=== PATIENT | male | born 1990 | race Caucasian/White ===

== ENCOUNTER 2018-08-15 18:42 | Inpatient (IN) | payer MEDICAID ==
[~2018-08-15] VITALS: Ht 177.8 cm; Wt 85.5 kg
[2018-08-15] MEDS ORDERED: NALOXONE 0.4 MG/ML, 1ML ONE ×2 (18:58→19:58)
[2018-08-15] MEDS ORDERED: NALOXONE 0.4 MG/ML, 1ML IVPush ONE ×2 (19:00→20:00)
[2018-08-15 19:15] LABS: MEAN CORPUSCULAR HEMOGLOBIN 29.7 pg (27.5-34.5); MEAN CORPUSCULAR HGB CONC 33.9 g/dL (33.2-36.2); MEAN CORPUSCULAR VOLUME 87.5 fL (81-97); MEAN PLATELET VOLUME 7.4 fL (7.4-10.4); PLATELET COUNT 392 x10^3/uL (130-400); RED BLOOD COUNT 6.41 x10^6/uL (4.38-5.82); RED CELL DISTRIBUTION WIDTH 13.6 % (9.4-14.8)
[2018-08-15 19:27] LABS: ANION GAP 11 mmol/L (5-15); CALCIUM 7.9 mg/dL (8.5-10.1); CHLORIDE 101 mmol/L (98-107); CREATININE 3.24 mg/dL (0.7-1.3)
[2018-08-15 19:39] LABS: BAND#(MANUAL) 0.33 x10^3/uL; BANDS%(MANUAL) 2 % (0-7); BASOS#(MANUAL) 0.17 x10^3/uL (0-0.1); BASOS% (MANUAL) 1 % (0-1); LYMPH#(MANUAL) 1.32 x10^3/uL (1-3.4); LYMPHS% (MANUAL) 8 % (22-44); MD YES; METAMYELOCYTES# (MANUAL) 0.17 x10^3/uL (0-0); METAMYELOCYTES% (MANUAL) 1 % (0-1); MONOS#(MANUAL) 1.32 x10^3/uL (0.3-2.7); MONOS% (MANUAL) 8 % (2-9); SEGS% (MANUAL) 80 % (42-75)
[2018-08-15 19:40] LABS: <PLATELET ESTIMATE> ADEQUATE; <PLT MORPHOLOGY> NORMAL PLT MORPH; <RBC MORPHOLOGY> NORMAL
[2018-08-15] MEDS ORDERED: NALOXONE 4 MG in SODIUM CHLORIDE 0.9% 1,000 ML IV SCH (20:00)
[2018-08-15] MEDS ORDERED: SODIUM CHLORIDE 0.9% 1,000ML IVBOLUS ONE (20:00)
[2018-08-15] MEDS: SODIUM CHLORIDE 0.9% IV SCH (20:45)
[2018-08-15] MEDS: NALOXONE IV SCH (20:45)
[2018-08-15] MEDS ORDERED: ONDANSETRON 2MG/ML, 2ML IVPush PRN (21:30)
[2018-08-15] MEDS ORDERED: NALOXONE 0.4 MG in SODIUM CHLORIDE 0.9% 1,000 ML IV SCH (21:30)
[2018-08-15] MEDS ORDERED: ONDANSETRON ODT 4 MG PO PRN (21:30)
[2018-08-15] MEDS: SODIUM BICARBONATE 8.4% 150 MEQ in DEXTROSE 5% 1,000 ML IV SCH (21:52)
[2018-08-16 00:17] VITALS: BP 138/93
[2018-08-16 01:41] LABS: MICROSCOPIC INDICATED
[2018-08-16 01:45] VITALS: BP 144/95
[2018-08-16 01:52] LABS: AMPHETAMINE SCREEN, URINE Positive (Negative); BARBITURATE SCREEN, URINE Negative (Negative); BENZODIAZEPINE SCREEN, URINE Positive (Negative); CANNABINOID SCREEN, URINE Negative (Negative); COCAINE SCREEN, URINE Positive (Negative); METHADONE SCREEN, URINE Negative (Negative); OPIATE SCREEN, URINE Positive (Negative)
[2018-08-16 02:02] LABS: CULTURE INDICATED? YES
[2018-08-16 04:00] VITALS: BP 150/85
[2018-08-16 04:46] LABS: CALCIUM 6.9 mg/dL (8.5-10.1); CHLORIDE 102 mmol/L (98-107)
[2018-08-16] MEDS: SODIUM BICARBONATE 8.4% 150 MEQ in DEXTROSE 5% 1,000 ML IV SCH ×3 (05:13→21:23)
[2018-08-16 05:15] LABS: BASOPHILS # (AUTO) 0.09 x10^3/uL (0-0.1); BASOPHILS % (AUTO) 1 % (0-1); EOSINOPHILS # (AUTO) 0.04 x10^3/uL (0-0.4); EOSINOPHILS % (AUTO) 0 % (1-7); LYMPHOCYTES # (AUTO) 2.45 x10^3/uL (1-3.4); LYMPHOCYTES % (AUTO) 22 % (22-44); MD NO; MEAN CORPUSCULAR HEMOGLOBIN 29.8 pg (27.5-34.5); MEAN CORPUSCULAR HGB CONC 33.9 g/dL (33.2-36.2); MEAN CORPUSCULAR VOLUME 87.8 fL (81-97); MEAN PLATELET VOLUME 7.5 fL (7.4-10.4); MONOCYTES # (AUTO) 1.11 x10^3/uL (0.2-0.8); MONOCYTES % (AUTO) 10 % (2-9); NEUTROPHILS # (AUTO) 7.53 x10^3/uL (1.8-6.8); NEUTROPHILS % (AUTO) 67 % (42-75); PLATELET COUNT 389 x10^3/uL (130-400); RED BLOOD COUNT 5.72 x10^6/uL (4.38-5.82); RED CELL DISTRIBUTION WIDTH 13.7 % (9.4-14.8)
[2018-08-16 05:16] LABS: ALANINE AMINOTRANSFERASE 473 U/L (12-78); ALKALINE PHOSPHATASE 58 U/L (45-117); ANION GAP 8 mmol/L (5-15); BILIRUBIN,TOTAL 0.8 mg/dL (0.2-1.0); CREATININE 1.92 mg/dL (0.7-1.3); TOTAL PROTEIN 6.6 g/dL (6.4-8.2)
[2018-08-16 06:21] LABS: CREATINE KINASE, TOTAL 35472 U/L (39-308)
[2018-08-16] MEDS: NALOXONE IV SCH ×2 (07:07→16:42)
[2018-08-16] MEDS: SODIUM CHLORIDE 0.9% IV SCH ×2 (07:07→16:42)
[2018-08-16] MEDS ORDERED: NICOTINE 21 MG/24 HR PATCH.TD24 TD ONE (18:30)
[2018-08-16] MEDS: MELATONIN 5 MG TABLET PO PRN (20:37)
[2018-08-17 04:00] VITALS: BP 135/70
[2018-08-17] MEDS: SODIUM BICARBONATE 8.4% 150 MEQ in DEXTROSE 5% 1,000 ML IV SCH (04:33)
[2018-08-17 04:39] LABS: BASOPHILS # (AUTO) 0.04 x10^3/uL (0-0.1); BASOPHILS % (AUTO) 0 % (0-1); EOSINOPHILS # (AUTO) 0.13 x10^3/uL (0-0.4); EOSINOPHILS % (AUTO) 1 % (1-7); LYMPHOCYTES # (AUTO) 2.52 x10^3/uL (1-3.4); LYMPHOCYTES % (AUTO) 27 % (22-44); MD NO; MEAN CORPUSCULAR HEMOGLOBIN 29.9 pg (27.5-34.5); MEAN CORPUSCULAR HGB CONC 34.4 g/dL (33.2-36.2); MEAN CORPUSCULAR VOLUME 86.8 fL (81-97); MEAN PLATELET VOLUME 7.3 fL (7.4-10.4); MONOCYTES # (AUTO) 1.15 x10^3/uL (0.2-0.8); MONOCYTES % (AUTO) 12 % (2-9); NEUTROPHILS # (AUTO) 5.42 x10^3/uL (1.8-6.8); NEUTROPHILS % (AUTO) 59 % (42-75); PLATELET COUNT 262 x10^3/uL (130-400); RED BLOOD COUNT 5.04 x10^6/uL (4.38-5.82); RED CELL DISTRIBUTION WIDTH 13.5 % (9.4-14.8)
[2018-08-17 04:43] LABS: ALANINE AMINOTRANSFERASE 284 U/L (12-78); ALBUMIN 2.3 g/dL (3.4-5.0); ANION GAP 7 mmol/L (5-15); CALCIUM 7.2 mg/dL (8.5-10.1); CHLORIDE 98 mmol/L (98-107); CREATININE 1.19 mg/dL (0.7-1.3)
[2018-08-17 04:47] LABS: ALKALINE PHOSPHATASE 43 U/L (45-117); BILIRUBIN,TOTAL 0.5 mg/dL (0.2-1.0); TOTAL PROTEIN 5.7 g/dL (6.4-8.2)
[2018-08-17] MEDS ORDERED: ACETAMINOPHEN 500 MG TABLET ONE (04:47)
[2018-08-17] MEDS: ACETAMINOPHEN 500 MG TABLET PO PRN ×2 (04:49→20:48)
[2018-08-17] MEDS: SODIUM CHLORIDE 0.9% 1,000 ML IV SCH ×2 (08:42→20:44)
[2018-08-17] MEDS ORDERED: OMNIPAQUE 350 MG/ML, 100ML BOTTLE ONE (12:27)
[2018-08-17 18:33] VITALS: BP 122/73
[2018-08-17] MEDS: NICOTINE 21 MG/24 HR PATCH.TD24 TD SCH (20:49)
[2018-08-17] MEDS: MELATONIN 5 MG TABLET PO PRN (22:03)
[2018-08-18 02:27] VITALS: BP 162/89
[2018-08-18 05:05] LABS: ANION GAP 7 mmol/L (5-15); CALCIUM 8.2 mg/dL (8.5-10.1); CHLORIDE 105 mmol/L (98-107)
[2018-08-18 05:30] LABS: CREATINE KINASE, TOTAL 8168 U/L (39-308)
[2018-08-18 07:58] VITALS: BP 163/100
[2018-08-18] MEDS ORDERED: TRAZODONE 50MG TABLET PO PRN (10:30)
[2018-08-18 13:45] VITALS: BP 135/75
[2018-08-18] MEDS: NICOTINE 21 MG/24 HR PATCH.TD24 TD SCH (19:39)
[2018-08-18 20:08] VITALS: BP 171/83
[2018-08-18 20:50] VITALS: BP 157/77
[2018-08-19 02:08] VITALS: BP 151/85
[2018-08-19 07:58] VITALS: BP 128/62
[2018-08-19 08:08] VITALS: BP 155/81
[2018-08-19 14:20] VITALS: BP 153/83
[2018-08-19 18:16] VITALS: BP 166/82
[2018-08-19] MEDS: NICOTINE 21 MG/24 HR PATCH.TD24 TD SCH (20:17)
[2018-08-19] MEDS: DIPHENHYDRAMINE 25 MG CAPSULE PO PRN (21:25)
[2018-08-19] MEDS ORDERED: DIPHENHYDRAMINE 25 MG CAPSULE PO ONE (23:30)
[2018-08-20 00:03] VITALS: BP 140/74
[2018-08-20 06:16] LABS: CHLORIDE 103 mmol/L (98-107)
[2018-08-20 06:36] LABS: ALANINE AMINOTRANSFERASE 242 U/L (12-78); ALBUMIN 2.8 g/dL (3.4-5.0); ALKALINE PHOSPHATASE 53 U/L (45-117); ANION GAP 7 mmol/L (5-15); BILIRUBIN,TOTAL 0.2 mg/dL (0.2-1.0); CALCIUM 8.7 mg/dL (8.5-10.1); CREATINE KINASE, TOTAL 1733 U/L (39-308); CREATININE 0.99 mg/dL (0.7-1.3); TOTAL PROTEIN 6.5 g/dL (6.4-8.2)
[2018-08-20 07:11] VITALS: BP 150/87
[2018-08-20 12:57] VITALS: BP 162/90
[2018-08-20] MEDS: NICOTINE 21 MG/24 HR PATCH.TD24 TD SCH (15:52)
[2018-08-20 18:20] VITALS: BP 143/88
[2018-08-20] MEDS: DIPHENHYDRAMINE 25 MG CAPSULE PO PRN (21:53)
[2018-08-21 02:46] VITALS: BP 118/67
[2018-08-21 06:49] VITALS: BP 138/80
[2018-08-21] MEDS: NICOTINE 21 MG/24 HR PATCH.TD24 TD SCH (09:40)
[2018-08-21 12:39] LABS: CHLORIDE 99 mmol/L (98-107)
[2018-08-21 12:45] LABS: ALANINE AMINOTRANSFERASE 275 U/L (12-78); ALBUMIN 3.6 g/dL (3.4-5.0); ALKALINE PHOSPHATASE 63 U/L (45-117); ANION GAP 6 mmol/L (5-15); BILIRUBIN,TOTAL 0.3 mg/dL (0.2-1.0); CALCIUM 9.2 mg/dL (8.5-10.1); CREATINE KINASE, TOTAL 843 U/L (39-308); CREATININE 1.22 mg/dL (0.7-1.3); TOTAL PROTEIN 8.2 g/dL (6.4-8.2)
[2018-08-21] MEDS ORDERED: SODIUM CHLORIDE 0.9% 1,000 ML IV ONE (14:00)
[2018-08-21 18:30] VITALS: BP 154/75
[2018-08-21] MEDS: DIPHENHYDRAMINE 25 MG CAPSULE PO PRN (21:18)
[2018-08-21] MEDS: PRAZOSIN 1 MG CAPSULE PO SCH (21:18)
[2018-08-22 03:14] VITALS: BP 93/53
[2018-08-22 05:51] LABS: CHLORIDE 100 mmol/L (98-107)
[2018-08-22 05:55] LABS: ANION GAP 5 mmol/L (5-15); CALCIUM 8.6 mg/dL (8.5-10.1)
[2018-08-22 05:56] LABS: ALANINE AMINOTRANSFERASE 209 U/L (12-78); ALBUMIN 3.3 g/dL (3.4-5.0); ALKALINE PHOSPHATASE 50 U/L (45-117); BILIRUBIN,TOTAL 0.3 mg/dL (0.2-1.0); CREATINE KINASE, TOTAL 550 U/L (39-308); CREATININE 1.28 mg/dL (0.7-1.3); TOTAL PROTEIN 7.1 g/dL (6.4-8.2)
[2018-08-22 07:06] VITALS: BP 125/60
[2018-08-22 13:30] VITALS: BP 131/72
[2018-08-22 19:20] VITALS: BP 146/74
[2018-08-22] MEDS: PRAZOSIN 1 MG CAPSULE PO SCH (20:51)
[2018-08-22] MEDS: NICOTINE 21 MG/24 HR PATCH.TD24 TD SCH (20:52)
[2018-08-22] MEDS: DIPHENHYDRAMINE 25 MG CAPSULE PO PRN (20:52)
[2018-08-23 01:28] VITALS: BP 121/70
[2018-08-23 05:13] LABS: CALCIUM 8.2 mg/dL (8.5-10.1); CHLORIDE 104 mmol/L (98-107)
[2018-08-23 05:19] LABS: ALANINE AMINOTRANSFERASE 145 U/L (12-78); ALKALINE PHOSPHATASE 51 U/L (45-117); ANION GAP 8 mmol/L (5-15); BILIRUBIN,TOTAL 0.2 mg/dL (0.2-1.0); CREATINE KINASE, TOTAL 366 U/L (39-308); CREATININE 1.26 mg/dL (0.7-1.3); TOTAL PROTEIN 6.3 g/dL (6.4-8.2)
[2018-08-23 06:40] VITALS: BP 110/69
[2018-08-23] MEDS ORDERED: NICO-487 TD (12:55)
[2018-08-23] MEDS ORDERED: PRAZ1CAP2 PO (12:55)
[2018-08-23 13:10] VITALS: BP 150/87
== END 2018-08-23 15:15 | disposition home or self-care (01) | DRG 917 ==
LOC: SUATTDRO 21:16 → ED 21:28 → EDIP 21:32 → CCU 23:27 → 3NE 08-17 17:59 → DCLOUNGE 08-23 15:07
PROVIDERS: ADMIT Hospitalist; ATTEND Hospitalist
PROC: 0T9B70Z Drainage of Bladder with Drainage Device, Via Natural or Artificial Opening (ICD-10-PCS; principal; 2018-08-16)
DX: T43.622A Poisoning by amphetamines, intentional self-harm, initial encounter (principal); G92 Toxic encephalopathy; N17.0 Acute kidney failure with tubular necrosis; B17.9 Acute viral hepatitis, unspecified; E87.1 Hypo-osmolality and hyponatremia; F11.20 Opioid dependence, uncomplicated; F15.20 Other stimulant dependence, uncomplicated; M62.82 Rhabdomyolysis; T40.1X2A Poisoning by heroin, intentional self-harm, initial encounter; D72.829 Elevated white blood cell count, unspecified; E86.9 Volume depletion, unspecified; F14.10 Cocaine abuse, uncomplicated; I10 Essential (primary) hypertension; Z81.8 Family history of other mental and behavioral disorders; Z91.5 Personal history of self-harm; Y92.89 Other specified places as the place of occurrence of the external cause; Z91.018 Allergy to other foods
CPT/HCPCS: 36415; 71045; 80048; 80053; 80074; 80307; 81001; 82550; 83735; 84100; 85025; 87081; 87086; 87806; 93005; 96374; 96376; G0378; J2310; J7070; Q9967; G0475; J7030; Q0163

== ENCOUNTER 2018-11-01 05:41 | Inpatient (IN) | payer MEDICAID ==
[~2018-11-01] VITALS: Ht 177.8 cm; Wt 97.0 kg
[~2018-11-01 05:41] MED LIST: NICO-487 TD; PRAZ1CAP2 PO
[2018-11-01 06:27] LABS: BASOPHILS # (AUTO) 0.03 x10^3/uL (0-0.1); BASOPHILS % (AUTO) 0 % (0-1); EOSINOPHILS % (AUTO) 1 % (1-7); LYMPHOCYTES # (AUTO) 1.29 x10^3/uL (1-3.4); LYMPHOCYTES % (AUTO) 12 % (22-44); MD NO; MEAN CORPUSCULAR HEMOGLOBIN 30.8 pg (27.5-34.5); MEAN CORPUSCULAR HGB CONC 34.5 g/dL (33.2-36.2); MEAN CORPUSCULAR VOLUME 89.1 fL (81-97); MEAN PLATELET VOLUME 6.9 fL (7.4-10.4); MONOCYTES # (AUTO) 0.78 x10^3/uL (0.2-0.8); MONOCYTES % (AUTO) 8 % (2-9); NEUTROPHILS # (AUTO) 8.25 x10^3/uL (1.8-6.8); NEUTROPHILS % (AUTO) 79 % (42-75); PLATELET COUNT 340 x10^3/uL (130-400); RED BLOOD COUNT 4.56 x10^6/uL (4.38-5.82); RED CELL DISTRIBUTION WIDTH 13.9 % (9.4-14.8)
[2018-11-01 06:38] LABS: ALANINE AMINOTRANSFERASE 38 U/L (12-78); ANION GAP 10 mmol/L (5-15); CALCIUM 7.9 mg/dL (8.5-10.1); CHLORIDE 101 mmol/L (98-107); CREATININE 1.41 mg/dL (0.7-1.3)
[2018-11-01 06:40] LABS: ALKALINE PHOSPHATASE 53 U/L (45-117); BILIRUBIN,TOTAL 0.6 mg/dL (0.2-1.0); CREATINE KINASE, TOTAL 252 U/L (39-308); TOTAL PROTEIN 6.8 g/dL (6.4-8.2)
[2018-11-01] MEDS ORDERED: VANCOMYCIN 1,700 MG in SODIUM CHLORIDE 0.9% 250 ML IV ONE (08:00)
[2018-11-01] MEDS ORDERED: SODIUM CHLORIDE FLUSH 10ML SYR IVF ONE (08:00)
[2018-11-01] MEDS ORDERED: VANCOMYCIN PER PHARMACY MC PRN ×2 (08:00→12:00)
[2018-11-01] MEDS ORDERED: BUPR1FIL3 SL (08:28)
[2018-11-01] MEDS ORDERED: FENTANYL PF 250 MCG/5ML ONE (09:14)
[2018-11-01] MEDS ORDERED: MIDAZOLAM 1 MG/ML, 2ML ONE (09:14)
[2018-11-01] MEDS ORDERED: BUPIVACAINE/PF 0.25% ONE (09:40)
[2018-11-01] MEDS ORDERED: EPINEPHRINE 1 MG/ML, 1ML ONE (09:40)
[2018-11-01] MEDS ORDERED: SUCCINYLCHOLINE 20 MG/ML, 10ML ONE (09:48)
[2018-11-01] MEDS ORDERED: DEXAMETHASONE 4 MG/ML, 1ML ONE (09:48)
[2018-11-01] MEDS ORDERED: PROPOFOL 10 MG/ML, 20ML ONE (09:48)
[2018-11-01] MEDS ORDERED: ONDANSETRON 2MG/ML, 2ML ONE (09:48)
[2018-11-01] MEDS ORDERED: ROCURONIUM 10 MG/ML,10ML ONE (09:48)
[2018-11-01] MEDS ORDERED: morphine SULFATE 10 MG/ML, 1ML IVPush PRN (10:00)
[2018-11-01] MEDS ORDERED: ACETAMINOPHEN 325 MG TABLET PO PRN (10:00)
[2018-11-01] MEDS ORDERED: HYDROcodone/APAP 5/325 TABLET PO PRN (10:00)
[2018-11-01] MEDS ORDERED: OXYcodone 5 MG/5 ML ORAL.SOL UDC PO PRN (10:30)
[2018-11-01] MEDS ORDERED: LABETALOL 5MG/ML, 20ML IV PRN (10:30)
[2018-11-01] MEDS ORDERED: FENTANYL PF 100 MCG/2ML IV PRN (10:30)
[2018-11-01] MEDS ORDERED: hydrALAzine 20 MG/ML, 1ML IV PRN (10:30)
[2018-11-01] MEDS ORDERED: ONDANSETRON 2MG/ML, 2ML IV PRN (10:30)
[2018-11-01] MEDS ORDERED: HYDROmorphone 1 MG/ML, 1ML IV PRN (10:30)
[2018-11-01] MEDS ORDERED: ONDANSETRON ODT 8 MG PO PRN (10:30)
[2018-11-01] MEDS ORDERED: PROMETHAZINE 12.5 MG SUPP PR PRN (10:30)
[2018-11-01] MEDS ORDERED: ACETAMINOPHEN 650 MG/20.3 ML UDC ONE (10:59)
[2018-11-01] MEDS ORDERED: PHARMACOKINETIC MONITORING MC PRN (12:00)
[2018-11-01] MEDS ORDERED: ONDANSETRON 2MG/ML, 2ML IVPush PRN (12:00)
[2018-11-01] MEDS ORDERED: PHARMACOKINETIC CONSULTATION MC ONE (12:00)
[2018-11-01] MEDS: NS + 20MEQ KCL 1,000 ML IV SCH (12:43)
[2018-11-01] MEDS: AMPICILLIN/SULBACTAM 3 GM in SODIUM CHLORIDE 0.9% 100 ML IV SCH ×2 (12:43→17:55)
[2018-11-01 14:30] VITALS: BP 97/41
[2018-11-01 18:25] VITALS: BP 100/52
[2018-11-01] MEDS ORDERED: DOCUSATE 100 MG CAPSULE PO PRN (21:00)
[2018-11-01] MEDS ORDERED: DIPHENHYDRAMINE 50 MG CAPSULE PO PRN (21:30)
[2018-11-01] MEDS: VANCOMYCIN 1,700 MG in SODIUM CHLORIDE 0.9% 250 ML IV SCH (22:16)
[2018-11-02] MEDS: AMPICILLIN/SULBACTAM 3 GM in SODIUM CHLORIDE 0.9% 100 ML IV SCH ×4 (00:09→17:28)
[2018-11-02 00:35] VITALS: BP 102/71
[2018-11-02] MEDS: NS + 20MEQ KCL 1,000 ML IV SCH (01:51)
[2018-11-02 05:31] LABS: MEAN CORPUSCULAR HEMOGLOBIN 29.7 pg (27.5-34.5); MEAN CORPUSCULAR HGB CONC 32.8 g/dL (33.2-36.2); MEAN CORPUSCULAR VOLUME 90.6 fL (81-97); MEAN PLATELET VOLUME 7.6 fL (7.4-10.4); PLATELET COUNT 340 x10^3/uL (130-400); RED BLOOD COUNT 4.37 x10^6/uL (4.38-5.82); RED CELL DISTRIBUTION WIDTH 13.9 % (9.4-14.8)
[2018-11-02 05:48] LABS: ANION GAP 7 mmol/L (5-15); CALCIUM 7.1 mg/dL (8.5-10.1); CHLORIDE 105 mmol/L (98-107); CREATININE 1.01 mg/dL (0.7-1.3)
[2018-11-02 06:20] LABS: BASOPHILS # (AUTO) 0.04 x10^3/uL (0-0.1); BASOPHILS % (AUTO) 0 % (0-1); EOSINOPHILS # (AUTO) 0.01 x10^3/uL (0-0.4); EOSINOPHILS % (AUTO) 0 % (1-7); LYMPHOCYTES # (AUTO) 1.16 x10^3/uL (1-3.4); LYMPHOCYTES % (AUTO) 11 % (22-44); MD SCAN; MONOCYTES # (AUTO) 0.36 x10^3/uL (0.2-0.8); MONOCYTES % (AUTO) 3 % (2-9); NEUTROPHILS # (AUTO) 9.14 x10^3/uL (1.8-6.8); NEUTROPHILS % (AUTO) 85 % (42-75)
[2018-11-02 07:18] VITALS: BP 109/50
[2018-11-02] MEDS: BUPRENORPHINE HCL/NALOXONE 8-2MG FILM SL SCH (08:21)
[2018-11-02] MEDS: VANCOMYCIN 1,700 MG in SODIUM CHLORIDE 0.9% 250 ML IV SCH ×2 (09:08→21:46)
[2018-11-02] MEDS: ENOXAPARIN 40 MG/0.4 ML SQ SCH (11:32)
[2018-11-02 12:00] VITALS: BP 137/65
[2018-11-02 19:48] VITALS: BP 128/61
[2018-11-03] MEDS: AMPICILLIN/SULBACTAM 3 GM in SODIUM CHLORIDE 0.9% 100 ML IV SCH ×5 (00:01→23:36)
[2018-11-03 00:55] VITALS: BP 134/69
[2018-11-03 07:24] VITALS: BP 136/82
[2018-11-03] MEDS: BUPRENORPHINE HCL/NALOXONE 8-2MG FILM SL SCH (09:19)
[2018-11-03] MEDS: VANCOMYCIN 1,700 MG in SODIUM CHLORIDE 0.9% 250 ML IV SCH (09:21)
[2018-11-03] MEDS ORDERED: SULF1TAB24 PO (09:40)
[2018-11-03] MEDS: ENOXAPARIN 40 MG/0.4 ML SQ SCH (12:11)
[2018-11-03 14:11] VITALS: BP 143/73
[2018-11-03 19:08] VITALS: BP 140/69
[2018-11-03] MEDS: VANCOMYCIN 1,800 MG in SODIUM CHLORIDE 0.9% 250 ML IV SCH (21:32)
[2018-11-04 02:13] VITALS: BP 131/60
[2018-11-04] MEDS: AMPICILLIN/SULBACTAM 3 GM in SODIUM CHLORIDE 0.9% 100 ML IV SCH ×2 (05:38→12:00)
[2018-11-04 06:43] VITALS: BP 132/59
[2018-11-04] MEDS: VANCOMYCIN 1,800 MG in SODIUM CHLORIDE 0.9% 250 ML IV SCH (08:31)
[2018-11-04] MEDS: BUPRENORPHINE HCL/NALOXONE 8-2MG FILM SL SCH (08:31)
[2018-11-04 12:41] VITALS: BP 166/77
[2018-11-04] MEDS ORDERED: AMOX1TAB12 PO (12:49)
[2018-11-04] MEDS ORDERED: AMOXICILLIN/CLAV 875-125MG TABLET PO SCH (21:00)
== END 2018-11-04 13:07 | disposition home or self-care (01) | DRG 857 ==
LOC: ED 07:26 → SUATTDRO 09:23 → EDIP 09:27 → 4NOR 11:39
PROVIDERS: ADMIT Family Medicine; ATTEND Family Medicine
PROC: 0K950ZZ Drainage of Right Shoulder Muscle, Open Approach (ICD-10-PCS; principal; 2018-11-01 09:30)
DX: T80.29XA Infection following other infusion, transfusion and therapeutic injection, initial encounter (principal); M60.011 Infective myositis, right shoulder; N18.9 Chronic kidney disease, unspecified; F11.10 Opioid abuse, uncomplicated; F15.10 Other stimulant abuse, uncomplicated; F14.10 Cocaine abuse, uncomplicated; Z79.52 Long term (current) use of systemic steroids; Z71.51 Drug abuse counseling and surveillance of drug abuser; Z91.018 Allergy to other foods
CPT/HCPCS: 36415; 80048; 80053; 80202; 82550; 83735; 85025; 87015; 87040; 87070; 87075; 87116; 87205; 87206; 93306; 96365; 99285; G0378; J0171; J0295; J1100; J1650; J2250; J2405; J2704; J3010; J3370; J3480; J3490; J0330; J7050

== ENCOUNTER → 2018-11-09 | Outpatient (CLI) | payer MEDICAID ==
[~2018-11-09] MED LIST changes: +AMOX1TAB12 PO; +BUPR1FIL3 SL; +SULF1TAB24 PO
== END | disposition home or self-care (01) ==
LOC: WOUND 09:02
PROVIDERS: ATTEND Family Medicine
DX: T81.31XA Disruption of external operation (surgical) wound, not elsewhere classified, initial encounter (principal); N18.9 Chronic kidney disease, unspecified; F55.3 Abuse of steroids or hormones; F11.10 Opioid abuse, uncomplicated; F15.10 Other stimulant abuse, uncomplicated; F14.10 Cocaine abuse, uncomplicated; Z87.891 Personal history of nicotine dependence; Z91.018 Allergy to other foods; Z79.52 Long term (current) use of systemic steroids; Y83.8 Other surgical procedures as the cause of abnormal reaction of the patient, or of later complication, without mention of misadventure at the time of the procedure; Y92.89 Other specified places as the place of occurrence of the external cause
CPT/HCPCS: 11043; 99205; 99215

== ENCOUNTER → 2018-11-14 | Outpatient (CLI) | payer BC, MEDICAID | END | disposition home or self-care (01) | LOC: WOUND 15:08 | PROVIDERS: ATTEND Internal Medicine | DX: T81.31XD Disruption of external operation (surgical) wound, not elsewhere classified, subsequent encounter (principal); F55.3 Abuse of steroids or hormones; N18.9 Chronic kidney disease, unspecified; F14.10 Cocaine abuse, uncomplicated; F11.90 Opioid use, unspecified, uncomplicated; F19.10 Other psychoactive substance abuse, uncomplicated; Z87.891 Personal history of nicotine dependence; Y83.8 Other surgical procedures as the cause of abnormal reaction of the patient, or of later complication, without mention of misadventure at the time of the procedure | CPT/HCPCS: 97605 ==

== ENCOUNTER → 2018-11-16 | Outpatient (CLI) | payer BC | END | disposition home or self-care (01) | LOC: WOUND 15:05 | PROVIDERS: ATTEND Family Medicine | DX: T81.31XD Disruption of external operation (surgical) wound, not elsewhere classified, subsequent encounter (principal); N18.9 Chronic kidney disease, unspecified; F55.3 Abuse of steroids or hormones; F11.10 Opioid abuse, uncomplicated; F15.10 Other stimulant abuse, uncomplicated; F14.10 Cocaine abuse, uncomplicated; Z87.891 Personal history of nicotine dependence; Z91.018 Allergy to other foods; Z79.52 Long term (current) use of systemic steroids; Y83.8 Other surgical procedures as the cause of abnormal reaction of the patient, or of later complication, without mention of misadventure at the time of the procedure | CPT/HCPCS: 97597 ==

== ENCOUNTER 2018-11-19 14:59 | Outpatient (CLI) | payer BC | END 2018-11-19 23:59 | disposition home or self-care (01) | LOC: WOUND 14:59 | PROVIDERS: ATTEND Internal Medicine | DX: T81.31XD Disruption of external operation (surgical) wound, not elsewhere classified, subsequent encounter (principal); F55.3 Abuse of steroids or hormones; N18.9 Chronic kidney disease, unspecified; F14.10 Cocaine abuse, uncomplicated; Z87.891 Personal history of nicotine dependence; Y83.8 Other surgical procedures as the cause of abnormal reaction of the patient, or of later complication, without mention of misadventure at the time of the procedure | CPT/HCPCS: 97605 ==

== ENCOUNTER 2018-11-21 14:52 | Outpatient (CLI) | payer BC | END 2018-11-21 23:59 | disposition home or self-care (01) | LOC: WOUND 14:52 | PROVIDERS: ATTEND Internal Medicine | DX: T81.31XD Disruption of external operation (surgical) wound, not elsewhere classified, subsequent encounter (principal); F55.3 Abuse of steroids or hormones; F14.10 Cocaine abuse, uncomplicated; Z87.891 Personal history of nicotine dependence; Y83.8 Other surgical procedures as the cause of abnormal reaction of the patient, or of later complication, without mention of misadventure at the time of the procedure | CPT/HCPCS: 97605 ==

== ENCOUNTER 2018-11-26 14:28 | Outpatient (CLI) | payer BC | END 2018-11-26 23:59 | disposition home or self-care (01) | LOC: WOUND 14:28 | PROVIDERS: ATTEND Family Medicine | DX: T81.31XD Disruption of external operation (surgical) wound, not elsewhere classified, subsequent encounter (principal); N18.9 Chronic kidney disease, unspecified; F55.3 Abuse of steroids or hormones; F14.10 Cocaine abuse, uncomplicated; F11.10 Opioid abuse, uncomplicated; F15.10 Other stimulant abuse, uncomplicated; F19.10 Other psychoactive substance abuse, uncomplicated; Z91.018 Allergy to other foods; Z87.891 Personal history of nicotine dependence; Z79.52 Long term (current) use of systemic steroids; Y83.8 Other surgical procedures as the cause of abnormal reaction of the patient, or of later complication, without mention of misadventure at the time of the procedure | CPT/HCPCS: 97597 ==

== ENCOUNTER 2018-12-23 22:12 | Inpatient (IN) | payer BC ==
[~2018-12-23] VITALS: Ht 177.8 cm; Wt 91.0 kg
[2018-12-23] MEDS ORDERED: CLON1TAB PO (22:31)
[2018-12-23] MEDS ORDERED: NALOXONE 1 MG/ML, 2ML ONE ×2 (22:34→22:37)
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
[2018-12-23] MEDS ORDERED: NALOXONE 1 MG/ML, 2ML IVPush ONE (23:00)
--- NOTE | 2018-12-23 23:05 | NUR ---
PT GIVEN 1MG NARCAN IV PUSH. PT RESPONDED WELL. PT ALERT IN BED AND RESPIRATIONS AND O2 SATURATION IMPROVING. PT ENGAGING IN CONVERSATION AND STATING HE'S COLD. WARM BLANKET PROVIDED. 2ND IV ESTABLISHED. LABS COLLECTED AND SENT TO LAB. PT MOTHER IN ROOM WITH PT AT THIS TIME. PT DENIES SI/HI AT THIS TIME. VSS.
[2018-12-23 23:35] LABS: BASOPHILS # (AUTO) 0.33 x10^3/uL (0-0.1); BASOPHILS % (AUTO) 3 % (0-1); EOSINOPHILS # (AUTO) 0.02 x10^3/uL (0-0.4); EOSINOPHILS % (AUTO) 0 % (1-7); LYMPHOCYTES # (AUTO) 1.35 x10^3/uL (1-3.4); LYMPHOCYTES % (AUTO) 13 % (22-44); MD NO; MEAN CORPUSCULAR HEMOGLOBIN 30.1 pg (27.5-34.5); MEAN CORPUSCULAR HGB CONC 34.4 g/dL (33.2-36.2); MEAN CORPUSCULAR VOLUME 87.4 fL (81-97); MEAN PLATELET VOLUME 7.5 fL (7.4-10.4); MONOCYTES # (AUTO) 0.77 x10^3/uL (0.2-0.8); MONOCYTES % (AUTO) 7 % (2-9); NEUTROPHILS # (AUTO) 8.03 x10^3/uL (1.8-6.8); NEUTROPHILS % (AUTO) 76 % (42-75); PLATELET COUNT 270 x10^3/uL (130-400); RED BLOOD COUNT 5.69 x10^6/uL (4.38-5.82); RED CELL DISTRIBUTION WIDTH 15.9 % (9.4-14.8)
[2018-12-23 23:47] LABS: ALANINE AMINOTRANSFERASE 55 U/L (12-78); ALBUMIN 3.7 g/dL (3.4-5.0); ANION GAP 6 mmol/L (5-15); CALCIUM 8.3 mg/dL (8.5-10.1); CHLORIDE 102 mmol/L (98-107); CREATININE 1.58 mg/dL (0.7-1.3)
[2018-12-23 23:49] LABS: SALICYLATE LEVEL < 1.7 mg/dL (2.8-20.0)
[2018-12-23 23:50] LABS: ACETAMINOPHEN < 2 mcg/mL (10-30); ALKALINE PHOSPHATASE 74 U/L (45-117); BILIRUBIN,TOTAL 0.5 mg/dL (0.2-1.0); TOTAL PROTEIN 7.8 g/dL (6.4-8.2)
--- NOTE | 2018-12-24 00:16 | NUR ---
TASK RN: PT LAYING IN GURNEY W/ EYES CLOSED. RESPIRATIONS EVEN/UNLABORED, RR 12-15. SPO2 88% ON RA. PLACED ON 3L BY NC, SPO2 TO 96%. PT ARROUSABLE TO PHYSICAL STIM, OPENS EYES BREIFLY, ANSWERS QUESTIONS WITH HEAD NOD THEN RETURNS TO SLEEP. NARCAN HELD AT THIS TIME RR WNL AND SPO2 >90% W/ SUPPORT. BP/SPO2/ECG MONITORING IN PLACE. NSR/SINUS TACH ON MONITOR, HR 98-105.
--- NOTE | 2018-12-24 01:12 | NUR ---
REPORT OF PT TO RN LIBBY. ALL QUESTIONS ANSWERED. PT VSS AND UPDATED PRIOR TO TRANSPORT TO FLOOR.
[2018-12-24 01:35] VITALS: BP 113/71
[2018-12-24] MEDS ORDERED: POLYETHYLENE GLYCOL 17 GM PACKET PO PRN (04:30)
[2018-12-24] MEDS ORDERED: IBUPROFEN 600 MG TABLET PO PRN (04:30)
[2018-12-24] MEDS ORDERED: ONDANSETRON 2MG/ML, 2ML IVPush PRN (04:30)
[2018-12-24] MEDS ORDERED: ACETAMINOPHEN 325 MG TABLET PO PRN (04:30)
[2018-12-24] MEDS: SODIUM CHLORIDE 0.9% 1,000 ML IV SCH ×3 (04:40→17:10)
[2018-12-24] MEDS: ENOXAPARIN 40 MG/0.4 ML SQ SCH (04:41)
[2018-12-24 06:38] LABS: ALANINE AMINOTRANSFERASE 58 U/L (12-78); ALBUMIN 3.1 g/dL (3.4-5.0); ANION GAP 8 mmol/L (5-15); CALCIUM 8.4 mg/dL (8.5-10.1); CHLORIDE 102 mmol/L (98-107); CREATININE 1.64 mg/dL (0.7-1.3)
[2018-12-24 06:52] LABS: ALKALINE PHOSPHATASE 67 U/L (45-117); BILIRUBIN,TOTAL 0.6 mg/dL (0.2-1.0); CREATINE KINASE, TOTAL 1314 U/L (39-308); TOTAL PROTEIN 6.9 g/dL (6.4-8.2)
[2018-12-24 08:00] VITALS: BP 113/71
[2018-12-24 08:16] LABS: AMPHETAMINE SCREEN, URINE Negative (Negative); BARBITURATE SCREEN, URINE Negative (Negative); BENZODIAZEPINE SCREEN, URINE Positive (Negative); CANNABINOID SCREEN, URINE Negative (Negative); COCAINE SCREEN, URINE Negative (Negative); METHADONE SCREEN, URINE Negative (Negative); OPIATE SCREEN, URINE Positive (Negative)
[2018-12-24 08:54] LABS: CHOL/HDL RATIO 5.4; LDL/HDL RATIO 3.5 (0.5-3.0)
[2018-12-24 09:15] LABS: HEMOGLOBIN A1C 5.2 % (4.2-6.3)
[2018-12-24] MEDS: NICOTINE 14MG/24 HR PATCH.TD24 TD SCH (11:32)
[2018-12-24 14:00] VITALS: BP 125/66
[2018-12-24] MEDS ORDERED: BUPRENORPHINE /NALOXONE 2-0.5MG FILM SL SCH (16:00)
[2018-12-24] MEDS: BUPRENORPHINE /NALOXONE 2-0.5MG FILM SL SCH ×2 (16:21→21:57)
[2018-12-24 18:33] VITALS: BP 144/72
[2018-12-25 00:42] VITALS: BP 124/62
[2018-12-25 02:10] VITALS: BP 139/80
[2018-12-25] MEDS: ENOXAPARIN 40 MG/0.4 ML SQ SCH (04:45)
[2018-12-25] MEDS: SODIUM CHLORIDE 0.9% 1,000 ML IV SCH ×4 (06:15→21:24)
[2018-12-25 07:34] VITALS: BP 126/66
[2018-12-25 09:28] LABS: ALBUMIN 2.7 g/dL (3.4-5.0); ANION GAP 5 mmol/L (5-15); CALCIUM 7.9 mg/dL (8.5-10.1); CHLORIDE 107 mmol/L (98-107); CREATININE 1.07 mg/dL (0.7-1.3)
[2018-12-25] MEDS: BUPRENORPHINE /NALOXONE 2-0.5MG FILM SL SCH ×2 (09:28→21:24)
[2018-12-25] MEDS: NICOTINE 14MG/24 HR PATCH.TD24 TD SCH (11:14)
[2018-12-25 12:11] VITALS: BP 142/87
[2018-12-25] MEDS ORDERED: MAGNESIUM SULFATE PMX 2GM/50ML 50 ML IV ONE (15:00)
[2018-12-25] MEDS: NEUTRA PHOS K 250 MG TABLET PO SCH ×2 (15:26→21:23)
[2018-12-25] MEDS: SERTRALINE 50MG TABLET PO SCH (17:16)
[2018-12-25 18:49] VITALS: BP 157/81
[2018-12-26 00:55] VITALS: BP 138/73
[2018-12-26] MEDS: SODIUM CHLORIDE 0.9% 1,000 ML IV SCH ×3 (03:41→17:10)
[2018-12-26] MEDS: ENOXAPARIN 40 MG/0.4 ML SQ SCH (05:02)
[2018-12-26 08:30] VITALS: BP 120/68
[2018-12-26] MEDS ORDERED: SERTRALINE 50MG TABLET PO SCH (09:00)
[2018-12-26] MEDS: NEUTRA PHOS K 250 MG TABLET PO SCH (09:32)
[2018-12-26] MEDS: BUPRENORPHINE/NALOXONE 2-0.5MG SL SCH ×2 (09:33→21:37)
[2018-12-26] MEDS: SERTRALINE 50MG TABLET PO SCH (09:33)
[2018-12-26] MEDS: NICOTINE 14MG/24 HR PATCH.TD24 TD SCH (11:37)
[2018-12-26 13:32] VITALS: BP 155/77
[2018-12-26 18:52] VITALS: BP 155/87
[2018-12-26] MEDS ORDERED: NICO-486 TD (19:02)
[2018-12-26] MEDS ORDERED: CLON0.5T11 PO (19:02)
[2018-12-26] MEDS ORDERED: CLON1TAB11 PO (19:02)
[2018-12-26] MEDS ORDERED: SERT50TA28 PO (19:02)
[2018-12-26] MEDS ORDERED: BUPRENORPHINE/NALOXONE 2-0.5MG SL SCH (21:00)
== END 2018-12-27 03:50 | DRG 917 ==
LOC: ED 22:53 → EDIP 12-24 00:27 → 4WST 12-24 01:38
PROVIDERS: ADMIT Hospitalist; ATTEND Hospitalist
DX: T40.1X2A Poisoning by heroin, intentional self-harm, initial encounter (principal); J96.01 Acute respiratory failure with hypoxia; E43 Unspecified severe protein-calorie malnutrition; N17.0 Acute kidney failure with tubular necrosis; E87.2 Acidosis; F15.20 Other stimulant dependence, uncomplicated; M62.82 Rhabdomyolysis; Z68.28 Body mass index [BMI] 28.0-28.9, adult; Z91.018 Allergy to other foods; E83.39 Other disorders of phosphorus metabolism; E83.42 Hypomagnesemia; F11.10 Opioid abuse, uncomplicated; F14.10 Cocaine abuse, uncomplicated; F17.200 Nicotine dependence, unspecified, uncomplicated; F32.9 Major depressive disorder, single episode, unspecified; I10 Essential (primary) hypertension; Z81.1 Family history of alcohol abuse and dependence; Z81.8 Family history of other mental and behavioral disorders; Z91.5 Personal history of self-harm; Y92.89 Other specified places as the place of occurrence of the external cause
CPT/HCPCS: 36415; 80048; 80053; 80061; 80307; 80329; 82040; 82550; 83036; 83735; 84100; 85025; 93005; 96374; 99291; G0378; J1650; G0480; J2310; J3475; J7030

== ENCOUNTER 2020-01-06 22:21 | Emergency (ER) | payer BC, MEDICAID ==
[~2020-01-06] VITALS: Ht 177.8 cm; Wt 86.0 kg
[~2020-01-06 22:21] MED LIST changes: +CLON-364 PO; +CLON1TAB PO; +CLON1TAB11 PO; +NICO-486 TD; +SERT50TA28 PO
[2020-01-06] MEDS ORDERED: SODIUM CHLORIDE FLUSH 10ML SYR IVF ONE (23:00)
--- NOTE | 2020-01-06 23:05 | NUR ---
LAB AT BEDSIDE
--- NOTE | 2020-01-06 23:10 | NUR ---
with clarification with provider/patient/patient's mother: patient did not try and harm himself. He was attempting to sedatye himself from over stimulating himself with meth and "accidentilly overdid it." Chief complaint changed from "Suicidal Attempt" to "Multiple complaints" as "Overdose" chief complaints defaults to "Suicide attempt"
[2020-01-06 23:11] LABS: MEAN CORPUSCULAR HGB CONC 34.3 g/dL (33.2-36.2); MEAN CORPUSCULAR VOLUME 87.4 fL (81-97); MEAN PLATELET VOLUME 7.1 fL (7.4-10.4); PLATELET COUNT 312 x10^3/uL (130-400); RED BLOOD COUNT 4.57 x10^6/uL (4.38-5.82); RED CELL DISTRIBUTION WIDTH 13.6 % (9.4-14.8)
[2020-01-06 23:23] LABS: ALANINE AMINOTRANSFERASE 31 U/L (12-78); ALBUMIN 3.5 g/dL (3.4-5.0); ANION GAP 6 mmol/L (5-15); CALCIUM 8.1 mg/dL (8.5-10.1); CHLORIDE 102 mmol/L (98-107); CREATININE 1.45 mg/dL (0.7-1.3)
[2020-01-06 23:25] LABS: SALICYLATE LEVEL < 1.7 mg/dL (2.8-20.0)
[2020-01-06 23:26] LABS: ALKALINE PHOSPHATASE 69 U/L (45-117); BILIRUBIN,TOTAL 0.7 mg/dL (0.2-1.0); TOTAL PROTEIN 7.7 g/dL (6.4-8.2)
[2020-01-06 23:32] LABS: MD YES
[2020-01-06 23:37] LABS: LYMPH#(MANUAL) 1.97 x10^3/uL (1-3.4); LYMPHS% (MANUAL) 24 % (22-44); MONOS#(MANUAL) 1.39 x10^3/uL (0.3-2.7); MONOS% (MANUAL) 17 % (2-9); SEG#(MANUAL) 4.84 x10^3/uL (1.8-6.8); SEGS% (MANUAL) 59 % (42-75)
[2020-01-06 23:38] LABS: <PLATELET ESTIMATE> ADEQUATE; <RBC MORPHOLOGY> NORMAL; SMALL PLATELETS 1+
--- NOTE | 2020-01-07 00:10 | NUR ---
Mother (Sandrita) left. She is willing to come pick patient even prior to full MTF [phone] VSS on cardiac rehabilitation specialist Report to Joel WILSON
--- NOTE | 2020-01-07 02:10 | NUR ---
PT SLEEPING ON GILDA KEVIN. PT MTF.
[2020-01-07 03:55] VITALS: BP 98/44
--- NOTE | 2020-01-07 04:42 | NUR ---
PT AWAKE AND A&O X 4, AMBULATES WITH STEADY GAIT. PT GIVEN TAXI VOUCHER FOR RIDE HOME.
== END 2020-01-07 04:57 | disposition home or self-care (01) ==
LOC: ED 01-07 03:47
DX: F11.129 Opioid abuse with intoxication, unspecified (principal)
CPT/HCPCS: 36415; 80053; 80307; 85025; 99283

== ENCOUNTER 2020-01-20 15:59 | Emergency (ER) | payer MEDICAID ==
[~2020-01-20] VITALS: Ht 177.8 cm; Wt 80.3 kg
[2020-01-20 16:11] VITALS: BP 143/70
[2020-01-20] MEDS ORDERED: PROPARACAINE OPHTH 0.5%, 15ML EACHEYE ONE (16:30)
[2020-01-20] MEDS ORDERED: FLUORESCEIN OPHTHALMIC 1 MG STRIP EACHEYE ONE (16:30)
== END 2020-01-20 17:33 | disposition home or self-care (01) ==
LOC: ED 17:25
DX: H10.023 Other mucopurulent conjunctivitis, bilateral (principal); F17.200 Nicotine dependence, unspecified, uncomplicated
CPT/HCPCS: 99283

== ENCOUNTER 2020-08-13 18:14 | Emergency (ER) | payer OTHER, MEDICAID ==
[~2020-08-13] VITALS: Ht 177.8 cm; Wt 77.7 kg
[2020-08-13 18:25] VITALS: BP 127/70
--- NOTE | 2020-08-13 19:46 | NUR ---
sports journalist: Pt to room from lobby at this time.
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
== END 2020-08-13 21:34 | disposition home or self-care (01) ==
LOC: ED 20:00
DX: S16.1XXA Strain of muscle, fascia and tendon at neck level, initial encounter (principal); V43.52XA Car driver injured in collision with other type car in traffic accident, initial encounter; Y93.89 Activity, other specified; Y92.488 Other paved roadways as the place of occurrence of the external cause; Y99.8 Other external cause status
CPT/HCPCS: 72050; 99283

== ENCOUNTER 2020-11-24 23:06 | Emergency (ER) | payer MEDICAID ==
[~2020-11-24] VITALS: Ht 177.8 cm; Wt 80.3 kg
[~2020-11-24 23:06] MED LIST changes: -NICO-487 TD; +NICO-587 TD
--- NOTE | 2020-11-24 23:34 | NUR ---
BREAK RN: PT. TO ED WITH C/O LARGE LEFT BUTTOCK ABSCESS X 4 DAYS AFTER INJECTING TESTOSTERONE. PT. STATES "I AM ALLERGIC TO LIDOCAINE; MY THROAT CLOSES UP. I AM GOING TO NEED YOU TO JUST PUT ME OUT." DR. AGUILERA AND TAM ADEN HAVE BOTH BEEN IN TO EVAL PT. AND DISCUSS POC. PT. STATES "IF YOU DON'T JUST PUT ME OUT I AM GOING TO GO SOMEWHERE ELSE TO HAVE IT DONE." SETTING UP FOR SEDATION PER DR. AGUILERA.
[2020-11-24] MEDS ORDERED: PROPOFOL 10 MG/ML, 20ML ONE (23:43)
[2020-11-25] MEDS ORDERED: SODIUM CHLORIDE FLUSH 10ML SYR IVF ONE
[2020-11-25] MEDS ORDERED: PROPOFOL 10 MG/ML, 100ML IV ONE
--- NOTE | 2020-11-25 01:08 | NUR ---
IV IS IN PLACE AND SEDATION READY.
[2020-11-25] MEDS ORDERED: CEPHALEXIN 500 MG CAPSULE PO ONE (02:00)
[2020-11-25] MEDS ORDERED: IBUPROFEN 800 MG TABLET PO ONE (02:00)
[2020-11-25] MEDS ORDERED: SULFAMETH./TRIMETHOPRIM DS 800MG/160MG TABLET PO ONE (02:00)
--- NOTE | 2020-11-25 02:00 | NUR ---
340 TOATAL PROPOFOL ADMIN DURING PROCEDURE; PT. TOLERATED WELL. SANA DRAIN IN PLACE; DRESSING IN PLACE. PT. REQUEST FOR 800MG IBUPROFEN; DISCUSSED WITH DR. AGUILERA AND NEW ORDERS RECEIVED. BS REPORT TO STEVE BOB TO ASSUME CARE OF PT.
--- NOTE | 2020-11-25 02:01 | NUR ---
WASTED 60MG PROPOFOL WITH ELI Peralta RN WITNESS.
--- NOTE | 2020-11-25 02:03 | NUR ---
SEE PROCEDURAL SEDATION PAPERWORK FOR PROCEDURE DETAILS. CHARTING CONTINUED FROM PACKET.
[2020-11-25] MEDS ORDERED: CEPHALEXIN 500 MG CAPSULE ONE (02:12)
[2020-11-25] MEDS ORDERED: IBUPROFEN 800 MG TABLET ONE (02:12)
[2020-11-25] MEDS ORDERED: SULFAMETH./TRIMETHOPRIM DS 800MG/160MG TABLET ONE (02:13)
[2020-11-25 02:17] VITALS: BP 107/56
--- NOTE | 2020-11-25 02:27 | NUR ---
RN at bedside. Explained discharge plan and instructions to pt- pt agrees with and understands discharge plan and prescriptions.
--- NOTE | 2020-11-25 02:28 | NUR ---
Provided pt. gauze pads to go home with and instructions for dressing change.
--- NOTE | 2020-11-25 02:35 | NUR ---
IV removed, catheter intact, hemostasis achieved.
--- NOTE | 2020-11-25 02:37 | NUR ---
Pt.'s girlfriend picking him up to give him ride home.
== END 2020-11-25 02:38 | disposition home or self-care (01) ==
LOC: ED 23:36
DX: L03.317 Cellulitis of buttock (principal); L02.31 Cutaneous abscess of buttock
CPT/HCPCS: 10060; 99152; 99153; 99285; J2704; 10061

== ENCOUNTER 2020-11-27 01:47 | Emergency (ER) | payer MEDICAID ==
[~2020-11-27] VITALS: Ht 177.8 cm; Wt 78.0 kg
--- NOTE | 2020-11-27 02:15 | NUR ---
ERP AT BEDSIDE TO REMOVE PACKING/DRAIN FROM WOUND. PT TOLERATED WELL.
[2020-11-27 02:25] VITALS: BP 129/70
--- NOTE | 2020-11-27 02:29 | NUR ---
Patient given discharge instructions and they have confirmed that they understand the instructions. Pt provided additional wound care supplies to properly care for wound. Patient ambulatory with steady gait.
== END 2020-11-27 04:44 | disposition home or self-care (01) ==
LOC: ED 04:00
DX: L03.317 Cellulitis of buttock (principal); Z48.01 Encounter for change or removal of surgical wound dressing; F17.210 Nicotine dependence, cigarettes, uncomplicated; F10.10 Alcohol abuse, uncomplicated; Y90.0 Blood alcohol level of less than 20 mg/100 ml
CPT/HCPCS: 99282

== ENCOUNTER 2021-02-28 13:26 | Emergency (ER) | payer MEDICAID ==
[~2021-02-28] VITALS: Ht 177.8 cm; Wt 75.9 kg
--- NOTE | 2021-02-28 14:15 | NUR ---
PT STATES INJECTED HEROIN IM INTO THE BUTTOCKS AND HAS HAD A ABSCESS. PT ALSO BELIEVES HE HAS A STD. REPORTS BURNING TO URINATE. MD TO BEDSIDE FOR EVALUTION. PT ATTACHED TO MONITORS. VSS. RODRIGUEZ.
[2021-02-28] MEDS ORDERED: BUPIVACAINE/PF 0.25% INFIL ONE (15:00)
[2021-02-28 15:11] VITALS: BP 118/64
[2021-02-28] MEDS ORDERED: BUPIVACAINE 0.25% ONE (15:15)
--- NOTE | 2021-02-28 15:46 | NUR ---
PT LEFT AMA AFTER FINDING OUT HE WASNT GOING TO BE "PUT UNDER" FOR HIS I&D STATING HE'S JUST GOING TO GO TO [place]. PT EDUCATED ON THE RISKS ON NOT HAVING ABCESS DRAINED BUT PATIENT STATES HES AFRAID OF NEEDLS. PT LEFT WITHOUT DISCHARGE PAPERWORK AND WITHOUT PRESCRIPTION. PT SIGNED AMA FORM. LEFT WITH STEADY GAIT AND ALL BELONGINGS.
== END 2021-02-28 15:47 | disposition left against medical advice (07) ==
LOC: ED 15:34
DX: L02.31 Cutaneous abscess of buttock (principal)
CPT/HCPCS: 99283

== ENCOUNTER 2021-07-31 15:39 | Emergency (ER) | payer MEDICAID ==
[~2021-07-31] VITALS: Ht 177.8 cm; Wt 75.0 kg
[~2021-07-31 15:39] MED LIST changes: +SULF-23 PO; -SULF1TAB24 PO
[2021-07-31 15:43] VITALS: BP 137/85
[2021-07-31] MEDS ORDERED: NEOSPORIN OINT. PKT 1 PACKET ONE (15:51)
[2021-07-31] MEDS ORDERED: DIPH,PERTUSS(ACELL),TET VAC/PF 0.5 ML IM-VACC ONE (15:52)
== END 2021-07-31 16:01 | disposition home or self-care (01) ==
LOC: ED 15:40
DX: G89.11 Acute pain due to trauma (principal); M25.531 Pain in right wrist; M79.641 Pain in right hand; L03.113 Cellulitis of right upper limb; F17.210 Nicotine dependence, cigarettes, uncomplicated; F11.10 Opioid abuse, uncomplicated; X58.XXXA Exposure to other specified factors, initial encounter; Y93.89 Activity, other specified; Y92.89 Other specified places as the place of occurrence of the external cause; Y99.8 Other external cause status
CPT/HCPCS: 99406